=== PATIENT | male | born 1980 | race Caucasian/White ===

== ENCOUNTER 2017-09-26 17:12 | Inpatient (IN) | payer MEDICARE, MEDICAID ==
[~2017-09-26] VITALS: Ht 177.8 cm; Wt 105.7 kg
[~2017-09-26 17:12] MED LIST: BUPR200T2 PO; DIAZ5 PO; ESCI10TA PO; LEVO25TA4 PO; PALI6 PO
[2017-09-26] MEDS ORDERED: LOPERAMIDE HCL 2 MG CAPSULE PO PRN (17:15)
[2017-09-26] MEDS ORDERED: MAGNESIUM HYDROXIDE SUSPENSION 30 ML UDCUP PO PRN (17:15)
[2017-09-26] MEDS ORDERED: MAG HYDROX/AL HYDROX/SIMETH ES 30 ML SUSPENSION UDCUP PO PRN (17:15)
[2017-09-26] MEDS ORDERED: HydrOXYzine PAMOATE 50 MG CAPSULE PO PRN (17:15)
[2017-09-26] MEDS ORDERED: GuaiFENesin/D-METHORPHAN [SUGAR-FREE] 200-20MG/10 ML SYRUP UDCUP PO PRN (17:15)
[2017-09-26] MEDS ORDERED: TUBERCULIN, PURIFIED PROTEIN DERIVATIVE 5 TU/0.1 ML SYG ID ONE (17:15)
[2017-09-26] MEDS ORDERED: ACETAMINOPHEN 325 MG TABLET PO PRN (17:15)
[2017-09-26] MEDS ORDERED: PALIPERIDONE 1.5 MG ER TABLET PO PRN (17:15)
[2017-09-26] MEDS ORDERED: PROMETHAZINE HCL 25 MG TABLET PO PRN (17:15)
[2017-09-26] MEDS ORDERED: INFLUENZA VIRUS VACCINE QVS 2017-18 (3YR+)/PF 60 MCG/0.5 ML SYRINGE IM ONE (23:15)
[2017-09-26] MEDS: PALIPERIDONE 3 MG ER TABLET PO SCH (23:49)
[2017-09-26] MEDS: ZOLPIDEM TARTRATE 10 MG TABLET PO PRN (23:49)
[2017-09-27 00:12] VITALS: BP 145/99
[2017-09-27] MEDS ORDERED: LEVOTHYROXINE SODIUM 25 MCG TABLET PO ONE (07:30)
[2017-09-27 08:07] VITALS: BP 138/73
[2017-09-27 08:48] LABS: BASOPHILS % (AUTO) 0.3 % (0.0-2.0); EOSINOPHILS % (AUTO) 1.8 % (1.0-6.0); HEMATOCRIT 46.6 % (41-53); LYMPHOCYTES # (AUTO) 2.7 K/uL (1.0-4.8); LYMPHOCYTES % (AUTO) 33.8 % (22.0-44.0); MEAN CORPUSCULAR HEMOGLOBIN 30.1 pg (26.0-34.0); MEAN CORPUSCULAR HGB CONC 34.3 G/dL (31.0-37.0); MEAN CORPUSCULAR VOLUME 88 fL (80-100); MONOCYTES # (AUTO) 0.7 K/uL (0.1-1.0); MONOCYTES % (AUTO) 8.8 % (2.0-9.0); NEUTROPHILS # (AUTO) 4.4 K/uL (1.8-7.7); NEUTROPHILS % (AUTO) 55.3 % (40.0-70.0); PLATELET COUNT (AUTO) 271 K/uL (150-450); RED BLOOD CELL COUNT(AUTO) 5.32 MIL/uL (4.50-5.90); RED CELL DISTRIBUTION WIDTH 14.5 % (11.5-14.5)
[2017-09-27] MEDS: SERTRALINE HCL 50 MG TABLET PO SCH (08:58)
[2017-09-27] MEDS: THIAMINE HCL 100 MG TABLET PO SCH ×2 (08:58→17:03)
[2017-09-27] MEDS: LORazepam 2 MG TABLET PO PRN ×2 (08:58→17:03)
[2017-09-27] MEDS: MULTIVITAMINS WITH MINERALS, THERAPEUTIC TABLET PO SCH (08:58)
[2017-09-27] MEDS: FOLIC ACID 1 MG TABLET PO SCH (08:58)
[2017-09-27] MEDS: CloNIDine HCL 0.1 MG TABLET PO SCH ×2 (08:58→17:03)
[2017-09-27 09:08] LABS: HEMOGLOBIN A1C 5.1 % (4.5-6.2)
[2017-09-27 10:24] LABS: ALANINE AMINOTRANSFERASE 29 U/L (12-78); ALBUMIN 3.2 g/dL (3.4-5.0); ALKALINE PHOSPHATASE 99 U/L (46-116); ANION GAP 6 mmol/L (8-16); ASPARTATE AMINOTRANSFERASE 16 U/L (15-37); BILIRUBIN,TOTAL 0.3 mg/dL (0.1-1.0); CARBON DIOXIDE 29 mmol/L (22-29); CHLORIDE 106 mmol/L (98-107); CHOL/HDL RATIO 5.6 (4.2-7.3); CHOLESTEROL 191 mg/dL (131-200); CREATININE 1.19 mg/dL (0.60-1.30); FREE T4 (FREE THYROXINE) 0.59 ng/dL (0.76-1.46); GLOMERULAR FILTR. RATE CALC > 60 mL/min (>60); GLUCOSE,RANDOM 87 mg/dL (70-110); HDL CHOLESTEROL 34 mg/dL (40-60); LDL CHOL (CALC.) 120 mg/dL (0-130); POTASSIUM 3.3 mmol/L (3.5-5.1); SODIUM SERUM 141 mmol/L (136-145); THYROID STIMULATING HORMONE 57.61 uIU/mL (0.36-3.74); TOTAL PROTEIN, SERUM 6.6 g/dL (6.4-8.2); TRIGLYCERIDES 183 mg/dL (15-150); UREA NITROGEN, BLOOD 14 mg/dL (7-18)
[2017-09-27 16:00] VITALS: BP 136/88
[2017-09-27] MEDS ORDERED: PALIPERIDONE PALMITATE 234 MG/1.5 ML SYRINGE IM ONE (21:00)
[2017-09-27] MEDS: PALIPERIDONE 3 MG ER TABLET PO SCH (21:42)
[2017-09-28 07:02] VITALS: BP 145/89
[2017-09-28 08:05] VITALS: BP 132/80
[2017-09-28] MEDS ORDERED: POTASSIUM CHLORIDE 20 MEQ ER TABLET PO ONE (09:00)
[2017-09-28 09:06] LABS: FREE T4 (FREE THYROXINE) 0.54 ng/dL (0.76-1.46); THYROID STIMULATING HORMONE 36.36 uIU/mL (0.36-3.74)
[2017-09-28] MEDS: MULTIVITAMINS WITH MINERALS, THERAPEUTIC TABLET PO SCH (09:30)
[2017-09-28] MEDS: SERTRALINE HCL 50 MG TABLET PO SCH (09:31)
[2017-09-28] MEDS: CloNIDine HCL 0.1 MG TABLET PO SCH ×2 (09:31→16:38)
[2017-09-28] MEDS: FOLIC ACID 1 MG TABLET PO SCH (09:32)
[2017-09-28] MEDS: THIAMINE HCL 100 MG TABLET PO SCH ×2 (09:32→16:38)
[2017-09-28] MEDS: LORazepam 2 MG TABLET PO PRN ×2 (10:43→16:38)
[2017-09-28 16:00] VITALS: BP 124/78
[2017-09-28] MEDS: ZOLPIDEM TARTRATE 10 MG TABLET PO PRN (20:24)
[2017-09-29 05:57] VITALS: BP 137/93
[2017-09-29] MEDS ORDERED: LEVOTHYROXINE SODIUM 25 MCG TABLET PO SCH (06:30)
[2017-09-29] MEDS: LEVOTHYROXINE SODIUM 50 MCG TABLET PO SCH (06:43)
[2017-09-29 08:21] VITALS: BP 138/74
[2017-09-29] MEDS: CloNIDine HCL 0.1 MG TABLET PO SCH ×2 (08:59→16:53)
[2017-09-29] MEDS: MULTIVITAMINS WITH MINERALS, THERAPEUTIC TABLET PO SCH (08:59)
[2017-09-29] MEDS: SERTRALINE HCL 50 MG TABLET PO SCH (08:59)
[2017-09-29] MEDS: FOLIC ACID 1 MG TABLET PO SCH (08:59)
[2017-09-29] MEDS: THIAMINE HCL 100 MG TABLET PO SCH ×2 (08:59→16:53)
[2017-09-29] MEDS ORDERED: SERT50TA12 PO (13:27)
[2017-09-29 16:19] VITALS: BP 132/83
[2017-09-29] MEDS: LORazepam 2 MG TABLET PO PRN (16:53)
[2017-09-29] MEDS: ZOLPIDEM TARTRATE 10 MG TABLET PO PRN (20:36)
[2017-09-30] MEDS: LEVOTHYROXINE SODIUM 50 MCG TABLET PO SCH (06:12)
[2017-09-30 06:46] VITALS: BP 140/83
[2017-09-30 08:25] VITALS: BP 137/80
[2017-09-30] MEDS: FOLIC ACID 1 MG TABLET PO SCH (08:58)
[2017-09-30] MEDS: THIAMINE HCL 100 MG TABLET PO SCH (08:58)
[2017-09-30] MEDS: MULTIVITAMINS WITH MINERALS, THERAPEUTIC TABLET PO SCH (08:58)
[2017-09-30] MEDS: CloNIDine HCL 0.1 MG TABLET PO SCH (08:58)
[2017-09-30] MEDS: SERTRALINE HCL 50 MG TABLET PO SCH (08:58)
[2017-09-30] MEDS ORDERED: CLON-570 PO (11:36)
[2017-09-30] MEDS ORDERED: LEVO50TA11 PO (11:36)
[2017-09-30] MEDS ORDERED: SERT50TA12 PO (11:36)
[2017-10-01] MEDS ORDERED: PALIPERIDONE PALMITATE 156 MG/ML SYRINGE IM ONE (09:00)
== END 2017-09-30 15:00 | disposition home or self-care (01) | DRG 885 ==
LOC: EDSTATUS 17:12 → B3A 21:23 → EDSTATUS 21:42
PROVIDERS: ADMIT Psychiatry & Neurology Psychiatry; ATTEND Psychiatry & Neurology Psychiatry
DX: F25.9 Schizoaffective disorder, unspecified (principal); R45.851 Suicidal ideations; Z59.0 Homelessness; E03.9 Hypothyroidism, unspecified; I10 Essential (primary) hypertension; E66.9 Obesity, unspecified; F17.200 Nicotine dependence, unspecified, uncomplicated; F12.10 Cannabis abuse, uncomplicated; Z68.33 Body mass index [BMI] 33.0-33.9, adult; Z65.3 Problems related to other legal circumstances; Z91.19 Patient's noncompliance with other medical treatment and regimen; Z79.899 Other long term (current) drug therapy
CPT/HCPCS: 83036; 84439; 84443; 84481; 86592

== ENCOUNTER 2017-09-26 18:10 | Emergency (ER) | payer MEDICARE, OTHER ==
[~2017-09-26] VITALS: Ht 175.3 cm; Wt 100.0 kg
[2017-09-26] MEDS ORDERED: LORazepam 2 MG TABLET PO ONE (19:00)
[2017-09-26] MEDS ORDERED: QUEtiapine FUMARATE 100 MG TABLET PO ONE (19:00)
[2017-09-26 19:07] LABS: BASOPHILS % (AUTO) 0.3 % (0.0-2.0); EOSINOPHILS % (AUTO) 0.7 % (1.0-6.0); HEMATOCRIT 47.8 % (41-53); HEMOGLOBIN 16.3 g/dL (13.5-17.5); LYMPHOCYTES # (AUTO) 2.7 K/uL (1.0-4.8); LYMPHOCYTES % (AUTO) 23.8 % (22.0-44.0); MEAN CORPUSCULAR HEMOGLOBIN 29.9 pg (26.0-34.0); MEAN CORPUSCULAR HGB CONC 34.2 G/dL (31.0-37.0); MEAN CORPUSCULAR VOLUME 87 fL (80-100); MONOCYTES # (AUTO) 0.7 K/uL (0.1-1.0); MONOCYTES % (AUTO) 6.5 % (2.0-9.0); NEUTROPHILS # (AUTO) 7.8 K/uL (1.8-7.7); NEUTROPHILS % (AUTO) 68.7 % (40.0-70.0); PLATELET COUNT (AUTO) 307 K/uL (150-450); RED BLOOD CELL COUNT(AUTO) 5.47 MIL/uL (4.50-5.90); RED CELL DISTRIBUTION WIDTH 14.5 % (11.5-14.5)
[2017-09-26 19:28] LABS: ANION GAP 7 mmol/L (8-16); CALCIUM, TOTAL 9.1 mg/dL (8.8-10.5); CARBON DIOXIDE 31 mmol/L (22-29); CHLORIDE 104 mmol/L (98-107); CREATININE 1.28 mg/dL (0.60-1.30); GLOMERULAR FILTR. RATE CALC > 60 mL/min (>60); GLUCOSE,RANDOM 113 mg/dL (70-110); POTASSIUM 3.9 mmol/L (3.5-5.1); SODIUM SERUM 142 mmol/L (136-145); UREA NITROGEN, BLOOD 10 mg/dL (7-18)
[2017-09-26 19:36] LABS: ALANINE AMINOTRANSFERASE 40 U/L (12-78); ALKALINE PHOSPHATASE 111 U/L (46-116); ASPARTATE AMINOTRANSFERASE 24 U/L (15-37); BILIRUBIN,TOTAL 0.2 mg/dL (0.1-1.0); TOTAL PROTEIN, SERUM 7.7 g/dL (6.4-8.2)
[2017-09-26 21:04] VITALS: BP 165/98
== END 2017-09-26 22:11 | disposition other institution (70) ==
LOC: EMS 18:11
DX: F20.9 Schizophrenia, unspecified (principal); R03.0 Elevated blood-pressure reading, without diagnosis of hypertension; E03.9 Hypothyroidism, unspecified; F17.210 Nicotine dependence, cigarettes, uncomplicated
CPT/HCPCS: 36415; 80053; 85025; 93005; 99285; G0480

== ENCOUNTER 2023-11-04 16:19 | Inpatient (IN) | payer MEDICARE ==
[~2023-11-04] VITALS: Ht 176.5 cm; Wt 115.7 kg
[~2023-11-04 16:19] MED LIST changes: -BUPR200T2 PO; +CLON0.1T2 PO; -DIAZ5 PO; -ESCI10TA PO; -LEVO25TA4 PO; +LEVO50TA11 PO; -PALI6 PO; +SERT-439 PO
[2023-11-04] MEDS ORDERED: ZOLPIDEM TARTRATE 10 MG TABLET PO PRN (18:15)
[2023-11-04 18:36] LABS: GLUCOMETER DEV NAME(LOC) POC.BV; POC SARS-COV2 AG, FIA NEGATIVE (NEGATIVE)
[2023-11-04] MEDS: PNEUMOCOCCAL VACCINE POLYVALENT 0.5 ML SYRINGE [PPSV23] IM. ONE (20:15)
[2023-11-04 20:30] VITALS: BP 159/110; PULSE 64; RESP 18; TEMP 97.1; O2SAT 96
[2023-11-04] MEDS: LORazepam 2 MG TABLET PO PRN (20:35)
[2023-11-05] MEDS ORDERED: NICOTINE 14 MG/24 HOUR PATCH TD PRN (06:45)
[2023-11-05 08:09] VITALS: BP 149/100; PULSE 66; RESP 18; TEMP 97.9; O2SAT 99
[2023-11-05] MEDS: HALOPERIDOL 5 MG TABLET PO PRN (08:17)
[2023-11-05 08:49] LABS: APPEARANCE,URINE CLEAR (CLEAR); BILIRUBIN,URINE NEGATIVE (NEGATIVE); COLOR,URINE LIGHT YELLOW (YELLOW); GLUCOSE, URINE (UA) NEGATIVE (NEGATIVE); KETONES,URINE NEGATIVE (NEGATIVE); LEUKOCYTE ESTERASE ,URINE NEGATIVE (NEGATIVE); NITRATE,URINE NEGATIVE (NEGATIVE); OCCULT BLOOD,URINE NEGATIVE (NEGATIVE); PROTEIN,URINE TRACE mg/dL (NEGATIVE); SPECIFIC GRAVITIY, URINE 1.018 (1.003-1.030); UROBILINOGEN,URINE <=1.0 mg/dL (<=1.0)
[2023-11-05 09:16] LABS: ALCOHOL, URINE DRUG SCREEN NEGATIVE (NEGATIVE); AMPHET/METH SCREEN,URINE NEGATIVE (NEGATIVE); BARBITURATE SCREEN, URINE NEGATIVE (NEGATIVE); BENZODIAZEPINES SCREEN,URINE NEGATIVE (NEGATIVE); CANNABINOID SCREEN,URINE NEGATIVE (NEGATIVE); COCAINE SCREEN,URINE NEGATIVE (NEGATIVE); METHADONE SCREEN, URINE NEGATIVE (NEGATIVE); OPIATE SCREEN,URINE NEGATIVE (NEGATIVE); PHENCYCLIDINE SCREEN,URINE NEGATIVE (NEGATIVE)
[2023-11-05] MEDS: QUEtiapine FUMARATE 100 MG TABLET PO SCH (11:32)
[2023-11-05] MEDS: SERTRALINE HCL 50 MG TABLET PO SCH (11:32)
[2023-11-05 11:48] VITALS: BP 157/111; PULSE 72; RESP 18; O2SAT 98
[2023-11-05] MEDS: AmLODIPine BESYLATE 5 MG TABLET PO SCH (12:23)
[2023-11-05] MEDS ORDERED: MAG HYDROX/ALUMINUM HYD/SIMETH ES 30 ML SUSPENSION UDCUP PO PRN (13:15)
[2023-11-05] MEDS ORDERED: ONDANSETRON HCL 4 MG TABLET PO PRN (13:15)
[2023-11-05] MEDS ORDERED: DOCUSATE SODIUM 100 MG CAPSULE PO PRN (13:15)
[2023-11-05] MEDS ORDERED: PETROLATUM,WHITE 28 GM JELLY TP PRN (13:15)
[2023-11-05] MEDS ORDERED: MAGNESIUM HYDROXIDE SUSPENSION 30 ML UDCUP PO PRN (13:15)
[2023-11-05] MEDS ORDERED: ALBUTEROL SULFATE HFA 90 MCG/PUFF 8 GM INHALER IH PRN (13:15)
[2023-11-05] MEDS ORDERED: GuaiFENesin/D-METHORPHAN [SUGAR-FREE] 200-20MG/10 ML SYRUP UDCUP PO PRN (13:15)
[2023-11-05] MEDS ORDERED: LOPERAMIDE HCL 2 MG CAPSULE PO PRN (13:15)
[2023-11-05] MEDS ORDERED: ACETAMINOPHEN 325 MG TABLET PO PRN (13:15)
[2023-11-05] MEDS: CloNIDine HCL 0.1 MG TABLET PO SCH (16:13)
[2023-11-05 20:09] VITALS: BP 151/80; PULSE 98; RESP 18; TEMP 98.4; O2SAT 95
[2023-11-06] MEDS ORDERED: LEVOTHYROXINE SODIUM 50 MCG TABLET PO SCH (06:30)
[2023-11-06] MEDS: LEVOTHYROXINE SODIUM 50 MCG TABLET PO SCH (06:41)
[2023-11-06 08:15] VITALS: BP 150/112; PULSE 82; RESP 18; TEMP 97.8; O2SAT 100
[2023-11-06 08:55] LABS: BASOPHILS % (AUTO) 0.4 % (0.0-2.0); EOSINOPHILS % (AUTO) 1.4 % (1.0-6.0); HEMATOCRIT 51.1 % (41-53); LYMPHOCYTES # (AUTO) 2.7 K/uL (1.0-4.8); LYMPHOCYTES % (AUTO) 31.8 % (22.0-44.0); MEAN CORPUSCULAR HEMOGLOBIN 30.7 pg (26.0-34.0); MEAN CORPUSCULAR HGB CONC 33.2 G/dL (31.0-37.0); MEAN CORPUSCULAR VOLUME 92 fL (80-100); MONOCYTES # (AUTO) 0.6 K/uL (0.1-1.0); MONOCYTES % (AUTO) 6.5 % (2.0-9.0); NEUTROPHILS # (AUTO) 5.2 K/uL (1.8-7.7); NEUTROPHILS % (AUTO) 59.9 % (40.0-70.0); PLATELET COUNT (AUTO) 311 K/uL (150-450); RED BLOOD CELL COUNT(AUTO) 5.53 MIL/uL (4.50-5.90); RED CELL DISTRIBUTION WIDTH 15.1 % (11.5-14.5); WHITE BLOOD COUNT (AUTO) 8.6 K/uL (4.5-11.0)
[2023-11-06 09:06] LABS: HEMOGLOBIN A1C 5.3 % (3.8-5.6)
[2023-11-06 09:24] LABS: ALBUMIN 3.7 g/dL (3.4-5.0); BILIRUBIN,TOTAL 0.4 mg/dL (0.1-1.0); CHOL/HDL RATIO 6.4 (4.2-7.3); CREATININE 1.37 mg/dL (0.60-1.30); FREE T4 (FREE THYROXINE) 0.55 ng/dL (0.76-1.46); POTASSIUM 3.7 mmol/L (3.5-5.1); THYROID STIMULATING HORMONE 79.9 uIU/mL (0.36-3.74); TOTAL PROTEIN, SERUM 7.8 g/dL (6.4-8.2)
[2023-11-06 10:12] VITALS: BP 130/100
[2023-11-06] MEDS: AmLODIPine BESYLATE 10 MG TABLET PO SCH (10:14)
[2023-11-06 16:36] VITALS: BP 132/92; PULSE 66; RESP 18
[2023-11-06 20:47] VITALS: BP 106/72; PULSE 70; RESP 17; TEMP 98; O2SAT 97
[2023-11-07 08:20] VITALS: BP 161/101; PULSE 66; RESP 19; TEMP 97.8; O2SAT 97
[2023-11-07 08:36] LABS: BASOPHILS % (AUTO) 0.5 % (0.0-2.0); EOSINOPHILS % (AUTO) 1.3 % (1.0-6.0); LYMPHOCYTES # (AUTO) 3.3 K/uL (1.0-4.8); LYMPHOCYTES % (AUTO) 34.8 % (22.0-44.0); MEAN CORPUSCULAR HEMOGLOBIN 30.5 pg (26.0-34.0); MEAN CORPUSCULAR HGB CONC 33.4 G/dL (31.0-37.0); MEAN CORPUSCULAR VOLUME 91 fL (80-100); MONOCYTES # (AUTO) 0.7 K/uL (0.1-1.0); NEUTROPHILS # (AUTO) 5.3 K/uL (1.8-7.7); NEUTROPHILS % (AUTO) 56.4 % (40.0-70.0); PLATELET COUNT (AUTO) 329 K/uL (150-450); RED BLOOD CELL COUNT(AUTO) 5.58 MIL/uL (4.50-5.90); RED CELL DISTRIBUTION WIDTH 14.7 % (11.5-14.5); WHITE BLOOD COUNT (AUTO) 9.5 K/uL (4.5-11.0)
[2023-11-07 10:00] VITALS: BP 140/87
[2023-11-07 20:15] VITALS: BP 159/116; PULSE 85; RESP 20; TEMP 98.3; O2SAT 98
[2023-11-07] MEDS: NICOTINE 14 MG/24 HOUR PATCH TD PRN (20:47)
[2023-11-08 08:02] VITALS: BP 163/118; PULSE 88; RESP 19; TEMP 97.6; O2SAT 98
[2023-11-08 16:29] VITALS: BP 113/72; PULSE 76; RESP 18
[2023-11-08 20:09] VITALS: BP 132/83; PULSE 91; RESP 17; TEMP 97.5
[2023-11-09 08:20] VITALS: BP 148/92; PULSE 69; RESP 18; TEMP 97.5; O2SAT 100
[2023-11-09] MEDS: IBUPROFEN 400 MG TABLET PO PRN (20:10)
[2023-11-09 20:15] VITALS: RESP 19
[2023-11-09 20:17] VITALS: BP 156/113; PULSE 83; RESP 18; TEMP 98; O2SAT 98
[2023-11-09 21:15] VITALS: RESP 16
[2023-11-10 08:10] VITALS: BP 141/81; PULSE 84; RESP 18; TEMP 98.6; O2SAT 97
[2023-11-10 16:26] VITALS: BP 159/99
[2023-11-10] MEDS ORDERED: HydrOXYzine PAMOATE 50 MG CAPSULE PO PRN (20:00)
[2023-11-10 20:15] VITALS: BP 159/99; PULSE 67; RESP 17; TEMP 97.7; O2SAT 100
[2023-11-10 21:56] VITALS: BP 138/95; PULSE 66; RESP 18; TEMP 97.8; O2SAT 98
[2023-11-11 08:31] VITALS: BP 151/97; PULSE 57; RESP 18; TEMP 97.7; O2SAT 98
[2023-11-11] MEDS ORDERED: LEVO50 PO (12:46)
[2023-11-11] MEDS ORDERED: AMLO-258 PO (12:46)
[2023-11-11] MEDS ORDERED: QUET100T34 PO (12:46)
[2023-11-11] MEDS ORDERED: SERT-439 PO (12:46)
[2023-11-11] MEDS ORDERED: HYDR10TA31 PO (16:13)
== END 2023-11-11 15:27 | disposition home or self-care (01) | DRG 885 ==
LOC: B2S 18:08
PROVIDERS: ADMIT Psychiatry & Neurology Child & Adolescent Psychiatry; ATTEND Psychiatry & Neurology Child & Adolescent Psychiatry
PROC: GZ52ZZZ Individual Psychotherapy, Cognitive (ICD-10-PCS; principal; 2023-11-08)
DX: F20.0 Paranoid schizophrenia (principal); N17.9 Acute kidney failure, unspecified; I10 Essential (primary) hypertension; Z20.822 Contact with and (suspected) exposure to COVID-19; G47.00 Insomnia, unspecified; E03.9 Hypothyroidism, unspecified; E78.5 Hyperlipidemia, unspecified; Z79.899 Other long term (current) drug therapy
CPT/HCPCS: 80053; 80061; 80307; 81003; 83036; 84439; 84443; 85025